=== PATIENT | female | born 1955 | race Caucasian/White ===

== ENCOUNTER 2016-08-29 09:03 | Inpatient (IN) | payer OTHER ==
[2016-08-08 11:05] VITALS: BMI 30.2
[2016-08-08 11:10] VITALS: BP_SYST 130; RESP 20; TEMP 97.7
[2016-08-29] VITALS (28 sets, daily range): BP systolic 108–159; RESP 11–18; TEMP 97.2–98.8; Ht 160 cm; Wt 77.4 kg
[~2016-08-29] VITALS: Ht 160 cm; Wt 77.4 kg
[2016-08-29] MEDS ORDERED: CEFAZOLIN 2,000 MG in SODIUM CHLORIDE 0.9% 100 ML IV ONE (09:05)
[2016-08-29] MEDS ORDERED: ROPIVACAINE 0.5% 139 MG, EPINEPHrine 1:1,000 0.2 MG, KETOROLAC INJ 30 MG, MORPHINE 10 MG SUBQ ONE ×4 (09:35)
[2016-08-29] MEDS ORDERED: SCOPOLAMINE PATCH TRANSDERM ONE (10:05)
[2016-08-29] MEDS ORDERED: LACT RINGERS 1,000 ML IV SCH ×2 (10:05→13:05)
[2016-08-29] MEDS ORDERED: MIDAZOLAM 2 MG/2 ML INJ IV ONE ×2 (10:05→10:45)
[2016-08-29] MEDS ORDERED: LIDOCAINE 1% BUFFERED 1 ML SYR INTRADERM PRN (10:05)
[2016-08-29] MEDS ORDERED: GLYCOPYRROLATE 0.2 MG/ML VIAL IV ONE ×2 (10:05→14:03)
[2016-08-29] MEDS ORDERED: ONDANSETRON 4 MG VIAL IV PRN ×2 (12:00→13:05)
[2016-08-29] MEDS ORDERED: MEPERIDINE 25 MG/ML IV PRN (12:00)
[2016-08-29] MEDS ORDERED: DILAUDID 1 MG/ML AMP IV PRN (12:00)
[2016-08-29] MEDS ORDERED: OXYCODONE 5 MG TAB PO PRN (12:00)
[2016-08-29] MEDS ORDERED: MORPHINE 4 MG/ML SYR IV PRN ×2 (12:00→13:05)
[2016-08-29] MEDS ORDERED: MORPHINE 2 MG/ML SYR IV PRN (12:00)
[2016-08-29] MEDS ORDERED: SODIUM CHLORIDE 0.9% IV ONE ×4 (12:15)
[2016-08-29] MEDS ORDERED: TRANEXAMIC ACID IV ONE ×4 (12:15)
[2016-08-29] MEDS ORDERED: DIPHENHYDRAMINE 25 MG CAP PO PRN (13:05)
[2016-08-29] MEDS ORDERED: KETOROLAC 30 MG/ML VIAL IV PRN (13:05)
[2016-08-29] MEDS ORDERED: ACETAMINOPHEN 325 MG TAB PO PRN (13:05)
[2016-08-29] MEDS ORDERED: TEMAZEPAM 15 MG CAP PO PRN (13:05)
[2016-08-29] MEDS ORDERED: BACITRACIN 50,000 UNITS INJ IRRIG ONE (13:49)
[2016-08-29] MEDS ORDERED: BUPIVACAINE 0.5% PF 30 ML EPIDURAL ONE (13:58)
[2016-08-29] MEDS ORDERED: BUPIVACAINE 0.5% PF 10ML EPIDURAL ONE (13:58)
[2016-08-29] MEDS ORDERED: FENTANYL 100 MCG/2 ML AMP IV ONE (14:03)
[2016-08-29] MEDS ORDERED: METOPROLOL 5 MG/5 ML VIAL IV ONE (14:03)
[2016-08-29] MEDS ORDERED: PROPOFOL 20 ML VIAL IV ONE (14:03)
[2016-08-29] MEDS ORDERED: ROCURONIUM 50 MG VIAL IV ONE (14:03)
[2016-08-29] MEDS ORDERED: NEOSTIGMINE 10 MG/10 ML VIAL IV ONE (14:03)
[2016-08-29] MEDS ORDERED: MEPERIDINE 25 MG/ML IV ONE (14:03)
[2016-08-29] MEDS: MORPHINE 2 MG/ML SYR IV PRN (17:22)
[2016-08-29] MEDS: CEFAZOLIN 2,000 MG in SODIUM CHLORIDE 0.9% 100 ML IV SCH (17:22)
[2016-08-29] MEDS ORDERED: ATENOLOL 25 MG TAB PO SCH (21:00)
[2016-08-29] MEDS: PRAVASTATIN 40 MG TAB PO SCH (21:27)
[2016-08-29] MEDS: FLUOXETINE 20 MG CAP PO SCH (21:27)
[2016-08-29] MEDS: SENNA 8.6 MG TAB PO SCH (21:27)
[2016-08-29] MEDS: METFORMIN 500 MG TAB PO SCH (21:27)
[2016-08-29] MEDS: DOCUSATE SOD 100 MG CAP PO SCH (21:43)
[2016-08-30] MEDS: CEFAZOLIN 2,000 MG in SODIUM CHLORIDE 0.9% 100 ML IV SCH ×3 (00:58→12:44)
[2016-08-30] MEDS: MORPHINE 2 MG/ML SYR IV PRN (03:31)
[2016-08-30 03:51] VITALS: BP_SYST 141; RESP 18; TEMP 99.6
[2016-08-30] MEDS: PANTOPRAZOLE 40 MG TAB PO SCH (06:13)
[2016-08-30] MEDS: FONDAPARINUX 2.5 MG SYR SUBQ SCH (06:15)
[2016-08-30 07:26] VITALS: BP_SYST 88; RESP 18; TEMP 99.5
[2016-08-30] MEDS: POLYETHYLENE GLYCOL 17 GM PACKET PO SCH (08:41)
[2016-08-30] MEDS: DOCUSATE SOD 100 MG CAP PO SCH ×2 (08:41→20:26)
[2016-08-30] MEDS: MAG HYDROX 30 ML UDC PO SCH (08:41)
[2016-08-30] MEDS: METFORMIN 500 MG TAB PO SCH ×2 (08:42→20:27)
[2016-08-30] MEDS: SENNA 8.6 MG TAB PO SCH ×2 (08:42→20:26)
[2016-08-30] MEDS: FLUOXETINE 20 MG CAP PO SCH ×2 (08:42→20:40)
[2016-08-30 11:58] VITALS: BP_SYST 118; RESP 18; TEMP 99.1
[2016-08-30] MEDS ORDERED: BISACODYL 10 MG SUPP RECTAL PRN (14:15)
[2016-08-30] MEDS ORDERED: FLEET ENEMA 132 ML BTL RECTAL PRN (14:15)
[2016-08-30 15:49] VITALS: BP_SYST 119; RESP 20; TEMP 99.8
[2016-08-30 19:41] VITALS: BP_SYST 142; RESP 16; TEMP 99.6
[2016-08-30] MEDS: PRAVASTATIN 40 MG TAB PO SCH (20:27)
[2016-08-30] MEDS ORDERED: ATENOLOL 50 MG TAB PO SCH (21:00)
[2016-08-30 22:51] VITALS: BP_SYST 152; RESP 18; TEMP 99
[2016-08-31 02:43] VITALS: BP_SYST 122; RESP 18; TEMP 100
[2016-08-31] MEDS: PANTOPRAZOLE 40 MG TAB PO SCH (06:51)
[2016-08-31] MEDS: FONDAPARINUX 2.5 MG SYR SUBQ SCH (06:52)
[2016-08-31 07:31] VITALS: BP_SYST 132; RESP 18; TEMP 98.6
[2016-08-31] MEDS: DOCUSATE SOD 100 MG CAP PO SCH (09:05)
[2016-08-31] MEDS: SENNA 8.6 MG TAB PO SCH (09:06)
[2016-08-31] MEDS: METFORMIN 500 MG TAB PO SCH (09:06)
[2016-08-31] MEDS: MAG HYDROX 30 ML UDC PO SCH (09:06)
[2016-08-31] MEDS: POLYETHYLENE GLYCOL 17 GM PACKET PO SCH (09:06)
[2016-08-31] MEDS: FLUOXETINE 20 MG CAP PO SCH (09:06)
[2016-08-31 12:35] VITALS: BP_SYST 145; RESP 18; TEMP 99.4
[2016-08-31 12:40] VITALS: BP_SYST 145; RESP 18; TEMP 99.4
[2016-09-01] MEDS ORDERED: REMOVE SCOPALAMINE PATCH XX ONE (10:05)
== END 2016-08-31 15:00 | disposition home health service (06) | DRG 470 ==
LOC: ENRESERVTM → ENRESERVDT → ENPENDDIS 09:03 → SDS 09:03 → 2NO 13:58
PROVIDERS: ADMIT Internal Medicine; ATTEND Internal Medicine
PROC: 0SRD0J9 Replacement of Left Knee Joint with Synthetic Substitute, Cemented, Open Approach (ICD-10-PCS; principal; 2016-08-29 10:34)
DX: M17.12 Unilateral primary osteoarthritis, left knee (principal); I10 Essential (primary) hypertension; E11.9 Type 2 diabetes mellitus without complications; K21.9 Gastro-esophageal reflux disease without esophagitis; E78.5 Hyperlipidemia, unspecified
CPT/HCPCS: 36600; 71020; 80048; 82803; 82947; 85014; 85018; 85025; 86850; 86900; 86901; 94762; 94799